=== PATIENT | male | born 1990 | race Caucasian/White ===

== ENCOUNTER 2016-12-31 16:23 | Observation (INO) | payer SELFPAY ==
[~2016-12-31] VITALS: Ht 170.2 cm; Wt 68.0 kg
[2016-12-31 16:29] VITALS: Ht 170.2 cm; Wt 68.0 kg
[2016-12-31] MEDS ORDERED: XYLOCAINE 1%/SOD BICARB 20 ML VIAL INFIL ONE (17:09)
[2016-12-31] MEDS ORDERED: CEFTRIAXONE SOD INJ 1 GM ADDVIAL IV STA (17:25)
[2016-12-31] MEDS ORDERED: MoRPHine SULFATE 10 MG/ML CARP/VIAL IV STA (17:25)
[2016-12-31] MEDS ORDERED: SODIUM CHLORIDE 0.9% 500ML 500 ML IV STA (17:25)
[2016-12-31] MEDS ORDERED: ONDANSETRON INJ 2 MG/ML 2 ML VIAL IV STA (17:25)
[2016-12-31 17:46] LABS: HEMATOCRIT 46.2 % (42-52); MEAN CELL VOLUME 88.7 fL (80-100); MEAN CORPUSCULAR HEMOGLOBIN 31.9 pg (25-34); MEAN CORPUSCULAR HGB CONC 35.9 g/dl (32-36); MEAN PLATELET VOLUME 9.1 fL (7.4-10.4); PLATELET COUNT 380 K/uL (130-400); RED BLOOD COUNT 5.21 M/uL (4.7-6.1); WHITE BLOOD COUNT 12.05 K/uL (4.8-10.8)
--- NOTE | 2016-12-31 17:51 | EMERGENCY ROOM VISIT NOTE ---
ED Visit Note First contact with patient: 17:30 Staff note: I have seen and examined this patient. I have discussed this case with my PA and generally agree with the ED note and findings.
[2016-12-31 18:03] LABS: BUN/CREATININE RATIO 19.6 (10-20); CALCIUM 9.4 mg/dl (8.5-10.1); CREATININE 1.1 mg/dl (0.60-1.40); POTASSIUM 3.7 mmol/L (3.5-5.1)
--- NOTE | 2016-12-31 18:05 | DIAGNOSTIC IMAGING REPORT ---
R WRIST 2 VIEW CLINICAL HISTORY: Right wrist laceration. COMPARISON: None FINDINGS: Alignment of the right wrist is anatomic. No fracture or radiopaque foreign body is identified. Carpal bones are intact. A lucency within the soft tissues overlying the palmar lateral aspect of the distal right radius suggests a laceration. IMPRESSION: 1. No acute fracture or radiopaque foreign body within the right wrist. 2. Lucency within the soft tissues of the palmar aspect of the right wrist which suggests a laceration. Electronically signed by: Robbie Flores M.D. 12/31/2016 6:04 PM Dictated Date/Time: 12/31/2016 6:02 PM
[2016-12-31] MEDS ORDERED: ROCURONIUM BROMIDE 10 MG/ML 5 ML VIAL IV ONE (18:17)
[2016-12-31] MEDS ORDERED: DEXAMETHASONE SOD INJ 4 MG/ML VIAL ONE (18:17)
[2016-12-31] MEDS ORDERED: LIDOCAINE HCL 2% 2 ML VIAL (20MG/ML) ONE (18:17)
[2016-12-31] MEDS ORDERED: MIDAZOLAM HCL 1 MG/ML 2ML VIAL ONE (18:17)
[2016-12-31] MEDS ORDERED: PROPOFOL IV EMULSION 10 MG/ML 20 ML VIAL IV ONE (18:17)
[2016-12-31] MEDS ORDERED: FENTANYL CITRATE INJ 50 MCG/1 ML 2 ML VIAL ONE (18:17)
[2016-12-31] MEDS ORDERED: NEOSTIGMINE METHYLSULFATE 5 MG/5 ML SYR ONE (18:17)
[2016-12-31] MEDS ORDERED: GLYCOPYRROLATE INJ 0.2 MG/ML VIAL ONE ×2 (18:17→19:04)
[2016-12-31] MEDS ORDERED: ONDANSETRON INJ 2 MG/ML 2 ML VIAL ONE (18:17)
[2016-12-31] MEDS ORDERED: SODIUM CHLORIDE 0.9% INJ 10 ML VIAL ONE (18:21)
[2016-12-31] MEDS ORDERED: HYDROmorphone INJ 2 MG/ML SYR/VIAL ONE (18:21)
[2016-12-31] MEDS ORDERED: BUPIVACAINE/EPINEPHRINE 0.5% MPF 1:200,000 30 ML VIAL ONE (18:25)
[2016-12-31] MEDS ORDERED: BUPIVACAINE 0.5 % 5 MG/1 ML MPF 30ML VIAL ONE (18:31)
[2016-12-31] MEDS: BACITRACIN 50000 UNIT VIAL ONE ×2 (19:22→19:26)
--- NOTE | 2016-12-31 19:58 | [facility] Post Operative Brief Note ---
Immediate Operative Summary Operative Date Dec 31, 2016. Pre-Operative Diagnosis Right wrist laceration Post-Operative Diagnosis Right wrist laceration with laceration radial artery and several flexor tendons Procedure(s) Performed Incision and Drainage Extremity right forearm with radial artery ligation Surgeon Dr. Elkin Webb Launderette Attendant Surgeon(s) none Estimated Blood Loss 50cc Findings as above Specimens none per surgeon Complication(s) None Disposition Recovery Room / PACU
[2016-12-31] MEDS ORDERED: ONDANSETRON INJ 2 MG/ML 2 ML VIAL IV PRN (20:00)
[2016-12-31] MEDS ORDERED: METOCLOPRAMIDE HCL INJ 5 MG/ML 2 ML VIAL IV PRN (20:00)
--- NOTE | 2016-12-31 20:00 | HISTORY & PHYSICAL EXAMINATION ---
DATE OF ADMISSION: 12/31/2016 CHIEF COMPLAINT: Laceration of right forearm. HISTORY OF PRESENT ILLNESS: Mathew is a 26-year-old male who was carrying a fish tank today when he dropped it and he has a transverse laceration across his right forearm. He came to the Emergency Room and there was concern for an injury to the ulnar artery. He was placed in a tourniquet and orthopedics was consulted to evaluate and treat. PAST MEDICAL HISTORY: Denies. MEDICATIONS: None. PAST SURGICAL HISTORY: Denies. ALLERGIES: AMOXICILLIN, PENICILLIN AND BACTRIM. FAMILY HISTORY: Noncontributory. SOCIAL HISTORY: He is currently single and lives in the [facility]. REVIEW OF SYSTEMS: He has right forearm laceration. PHYSICAL EXAMINATION: GENERAL: He is awake, alert and oriented x3. He is very frustrated and very belligerent and rude to the staff. HEENT: His pupils are equal, round and reactive to light. Extraocular movements intact. Oral mucosa is pink and moist. HEART: Regular rate per radial pulse. LUNGS: Suad symmetrically bilaterally with no audible breath sounds. ABDOMEN: Soft, nontender, nondistended. MUSCULOSKELETAL: There is a transverse laceration on the ulnar volar aspect of his right forearm. It is about 3 cm proximal to the distal flexor crease. There was a tourniquet applied to his forearm and there is no current bleeding. He refuses to participate in any neurologic or vascular exam. He keeps screaming that he will not participate and that he will not move anything. It is not that he cannot move it, it is he refuses to participate in any exam until he gets more pain meds or he has it fixed. IMPRESSION: A volar laceration with possible ulnar artery injury to the right forearm. PLAN: I want to take him to the operating room and make sure I can get the bleeding stopped. I will do an exploration of the wound. It is going to be difficult with the fact that he is refusing to give me any physical exam. I will probably keep him overnight on IV antibiotics before discharge to home.
--- NOTE | 2016-12-31 20:25 | Anesthesiology Progress Note ---
Anesthesia Post Op Note Date & Time Dec 31, 2016 at 20:25 Vital Signs Pain Intensity: 3 Vital Signs Past 12 Hours Date Time Temp Pulse Resp B/P (MAP) Pulse Ox O2 Delivery O2 Flow Rate FiO2 12/31/16 20:20 36.4 95 18 136/81 100 Room Air 12/31/16 20:10 90 18 128/89 100 Room Air 12/31/16 20:00 92 18 132/88 100 Room Air 12/31/16 19:50 36.5 88 18 141/87 100 Room Air 12/31/16 18:32 86 22 143/85 98 12/31/16 16:29 37.0 102 16 135/93 96 Room Air Notes Mental Status: alert / awake / arousable, participated in evaluation Pt Amnestic to Procedure: Yes Nausea / Vomiting: adequately controlled Pain: adequately controlled Airway Patency, RR, SpO2: stable & adequate BP & HR: stable & adequate Hydration State: stable & adequate Anesthetic Complications: no major complications apparent
[2016-12-31 20:35] VITALS: BP 132/87; PULSE 98; TEMP 36.6; O2SAT 98; O2SAT 99
--- NOTE | 2016-12-31 20:48 | EMERGENCY ROOM VISIT NOTE ---
History First contact with patient: 17:03 Chief Complaint: LACERATION/CUT (SUT/DERMABOND) Stated Complaint: R WRIST LAC. Nursing Triage Summary: Right wrist laceration. History of Present Illness The patient is a 26 year old male who presents to the Emergency Room with complaints of a laceration to his right wrist. The patient reports that he was carrying an aquarium when it dropped, shattered and cut his wrist. The patient reports significant bleeding from the wound. He rates his discomfort a 10 out of 10. A pressure dressing was applied prior to arrival. Tetanus immunization is up-to-date. The patient is [id number]. He reports pain extending into the hand and fingers. He denies any numbness or paresthesias of the hand or fingers. Review of Systems HEENT: Denies dizziness, visual problems, hearing loss, tinnitus. Denies difficulty swallowing or oral lesions. PULMONARY: Denies cough, shortness of breath, sputum production or hemoptysis. CARDIOVASCULAR: Denies chest pain, palpitations, dyspnea on exertion, orthopnea or peripheral edema. GASTROINTESTINAL: Denies diarrhea, constipation, nausea, vomiting, or abdominal pain. GENITOURINARY: Denies dysuria, frequency, urgency or nocturia. NEUROLOGIC: Denies history of epilepsy, CVA, TIA or chronic headaches. MUSCULOSKELETAL: Denies history of joint tenderness/swelling. SKIN: Denies rashes or lesions. PSYCHIATRIC: Denies history of depression or mental illness. ENDOCRINE: Denies history of diabetes or thyroid disorders. Past Medical/Surgical History Medical Problems: (1) Forearm laceration involving tendon Family History Unremarkable Social History Smoking Status: Former Smoker Alcohol Use: occasionally Marital Status: single Occupation Status: employed Current/Historical Medications Scheduled Cephalexin Monohydrate (Keflex), 500 MG PO QID Scheduled PRN Hydrocodone/Acetaminophen 5MG/325MG ([place] 5MG/325MG), 1 TABLET PO Q6 PRN for Pain Allergies Coded Allergies: Amoxicillin (Verified Allergy, Unknown, HIVES AND TONGUE SWELLING, 12/31/16 ) Penicillins (Unverified Allergy, Unknown, UNKNOWN, 12/31/16) PATIENT SAYS HE IS ALLERGIC TO "ALL CILLINS" Sulfamethoxazole w/Trimethoprim (Verified Allergy, Unknown, HIVES AND TONGUE SWELLS, 12/31/16) Physical Exam Vital Signs Date Time Temp Pulse Resp B/P (MAP) Pulse Ox O2 Delivery O2 Flow Rate FiO2 12/31/16 20:00 92 18 132/88 100 Room Air 12/31/16 19:50 36.5 88 18 141/87 100 Room Air 12/31/16 18:32 86 22 143/85 98 12/31/16 16:29 37.0 102 16 135/93 96 Room Air Physical Exam CONSTITUTIONAL: Healthy and well nourished. Alert and oriented X 3. PSYCHIATRIC: The patient is belligerent, confrontational with staff and crying. HEENT: Normocephalic, atraumatic. Pupils equal, round and reactive. NECK: Full active range of motion without discomfort. RESPIRATORY: Clear to auscultation bilaterally with no wheezing, crackles, rhonchi or stridor. CARDIOVASCULAR: Regular rate and rhythm with no murmurs, rubs or gallops. MUSCULOSKELETAL: On my initial presentation, a pressure dressing had been applied to the wrist. Upon removal of the dressing, there was no active bleeding. The patient then refused any additional examination, reporting that any movement of his wrist cause significant discomfort. He refuses to flex and extend the fingers. No obvious glass foreign bodies or wound contamination is appreciated. Capillary refill of all fingers is less than 2 seconds. INTEGUMENTARY: No rash or other significant dermatologic conditions noted. NEUROLOGIC: Right hand and fingers are grossly sensory intact, although detailed neurologic exam was refused by the patient. Medical Decision & Procedures ER Provider Diagnostic Interpretation: My interpretation of right wrist x-rays does not show any obvious fractures. Radiologist report is as follows: R WRIST 2 VIEW CLINICAL HISTORY: Right wrist laceration. COMPARISON: None FINDINGS: Alignment of the right wrist is anatomic. No fracture or radiopaque foreign body is identified. Carpal bones are intact. A lucency within the soft tissues overlying the palmar lateral aspect of the distal right radius suggests a laceration. IMPRESSION: 1. No acute fracture or radiopaque foreign body within the right wrist. 2. Lucency within the soft tissues of the palmar aspect of the right wrist which suggests a laceration. Laboratory Results 12/31/16 17:30 12/31/16 17:30 Test 12/31/16 17:30 Red Blood Count 5.21 M/uL (4.7-6.1) Mean Corpuscular Volume 88.7 fL (80-100) Mean Corpuscular Hemoglobin 31.9 pg (25-34) Mean Corpuscular Hemoglobin Concent 35.9 g/dl (32-36) RDW Standard Deviation 40.3 fL (36.4-46.3) RDW Coefficient of Variation 12.5 % (11.5-14.5) Mean Platelet Volume 9.1 fL (7.4-10.4) Anion Gap 13.0 mmol/L (3-11) Est Creatinine Clear Calc Drug Dose 93.5 ml/min Estimated GFR () 105.3 Estimated GFR (Non- 90.9 BUN/Creatinine Ratio 19.6 (10-20) Calcium Level 9.4 mg/dl (8.5-10.1) The above labs were reviewed. Hemoglobin is stable at 16.6. Medications Administered Medications (Trade) Dose Ordered Sig/Felicity Route Start Time Stop Time Status Last Admin Dose Admin Lidocaine HCl (Buffered Lidocaine 1% Inj) 20 ml STK-MED ONCE INFIL 12/31/16 17:09 12/31/16 17:10 DC 12/31/16 17:49 20 ML Ceftriaxone Sodium (Rocephin Inj) 1 gm NOW STAT IV 12/31/16 17:25 12/31/16 17:30 DC 12/31/16 17:49 1 GM Morphine Sulfate (MoRPHine SULFATE INJ) 8 mg NOW STAT IV 12/31/16 17:25 12/31/16 17:30 DC 12/31/16 17:48 8 MG Ondansetron HCl (Zofran Inj) 4 mg NOW STAT IV 12/31/16 17:25 12/31/16 17:30 DC 12/31/16 17:48 4 MG Sodium Chloride 500 ml @ 999 mls/hr Q31M STAT IV 12/31/16 17:25 12/31/16 17:55 DC 12/31/16 17:49 999 MLS/HR Bacitracin (Bacitracin Inj) 100,000 units STK-MED ONCE .ROUTE 12/31/16 18:25 12/31/16 18:26 DC 12/31/16 19:26 50,000 UNITS Bupivacaine HCl (Marcaine 0.5% MPF Inj) 60 ml STK-MED ONCE .ROUTE 12/31/16 18:31 12/31/16 18:32 DC 12/31/16 19:23 30 ML Oxycodone HCl (Roxicodone Immediate Rel Tab) 1-2 TABS FOR PAIN 1 TABLET ... Q4H PRN PO 12/31/16 20:00 01/01/17 10:57 DC 01/01/17 09:43 10 MG Morphine Sulfate (MoRPHine SULFATE INJ) 2 mg Q2HWA PRN IV 12/31/16 20:00 01/01/17 10:57 DC 01/01/17 08:00 2 MG Procedure Wound evaluation was performed under local anesthesia after receiving verbal consent from the patient. Using buffered 1% lidocaine without epinephrine, good local anesthesia was administered. The peripheral tissue was cleansed with iodine. There was no active bleeding during local anesthesia administration. As I was attempting to perform additional wound exploration in sterile fashion, the patient had immediate hemorrhage of the radial artery. I was unable to control the bleeding with direct pressure, therefore a blood pressure cuff tourniquet at 300 mmHg was applied and saline gauze applied. The patient appears to have a transected radial artery, and extensive flexor tendon lacerations. I was unable to further identify which tendons were lacerated because of the patient's intolerance to exam. ED Course Patient history and physical exam were performed. Nurse's notes were reviewed. Vital signs were reviewed and were normal. As indicated in previous sections , pressure dressings were removed from the wound on my initial exam. The patient had no active bleeding. I did suggest wound evaluation and repair under local anesthesia. The patient had spontaneous and significant hemorrhage from the radial artery. A blood pressure cuff tourniquet, inflated to 300 mmHg , had to be applied. I immediately is cussed the case with Dr. Melchor, ED attending physician, who performed an exam and agrees with a stat orthopedic consultation. The patient was further evaluated by Dr. Webb who will be taking the patient to the OR for further wound exploration and repair. Total tourniquet time until I spoke with Dr. Webb upon his arrival was 56 minutes. Immediately after it was determined that the patient would likely require surgical intervention, and before consultation with Dr. Webb, IV access was established. Labs were reviewed with a normal hemoglobin. The patient was administered IV Rocephin, morphine and Zofran. Please see Dr. Webb's dictation for further surgical treatment and final disposition. Medical Decision Impression Primary Impression: Forearm laceration involving tendon Departure Information Prescriptions Hydrocodone/Acetaminophen 5MG/325MG ([place] 5MG/325MG) Tab 1 TABLET PO Q6 Y for Pain, #20 TAB Prov: Elkin Webb, DO 01/01/17 Cephalexin Monohydrate (KEFLEX) 500 Mg Cap 500 MG PO QID for 10 Days, #40 CAP Prov: Elkin Webb, DO 01/01/17 Referrals No Doctor, Assigned (PCP) Patient Instructions [facility] Problem Qualifiers Primary Impression: Forearm laceration involving tendon Encounter type: initial encounter Laterality: right Qualified Codes: S51.811A - Laceration without foreign body of right forearm, initial encounter; S56.921A - Laceration of unspecified muscles, fascia and tendons at forearm level, right arm, initial encounter
[2016-12-31 21:08] VITALS: BP 121/77; PULSE 89; TEMP 36.6; O2SAT 92
[2016-12-31 21:15] VITALS: O2SAT 92
[2016-12-31 21:39] VITALS: BP 132/79; PULSE 92; TEMP 36.5; O2SAT 97
[2016-12-31] MEDS: OXYCODONE HCL IR 5 MG TAB (IMMEDIATE RELEASE) PO PRN (21:44)
[2016-12-31] MEDS: KETOROLAC TROMETHAMINE 30 MG/ML VIAL IV. SCH (21:45)
[2016-12-31] MEDS: ACETAMINOPHEN IV 1,000 MG in EMPTY BAG 0 ML IV SCH (21:45)
[2016-12-31] MEDS: POTASSIUM CHLORIDE INJ 10 MEQ in SODIUM CHLORIDE 0.9% 1000ML 1,000 ML IV SCH (21:45)
[2016-12-31 22:40] VITALS: BP 133/89; PULSE 98; TEMP 36.8; O2SAT 97
[2016-12-31] MEDS ORDERED: IV FLUIDS COMPLETED PRN (23:15)
[2017-01-01 00:08] VITALS: BP 135/84; PULSE 95; TEMP 36.4; O2SAT 98
[2017-01-01] MEDS: MoRPHine SULFATE 2 MG/ML CARP IV PRN ×2 (01:04→08:00)
[2017-01-01] MEDS: CEFAZOLIN IV 2,000 MG in DEXTROSE 5% 50ML 50 ML IV SCH ×2 (01:39→09:32)
[2017-01-01] MEDS: KETOROLAC TROMETHAMINE 30 MG/ML VIAL IV. SCH ×2 (03:48→09:33)
[2017-01-01 03:50] VITALS: BP 113/73; PULSE 87; TEMP 36.5; O2SAT 95
[2017-01-01] MEDS: ACETAMINOPHEN IV 1,000 MG in EMPTY BAG 0 ML IV SCH (05:33)
[2017-01-01] MEDS: OXYCODONE HCL IR 5 MG TAB (IMMEDIATE RELEASE) PO PRN ×2 (05:36→09:43)
[2017-01-01 06:54] VITALS: BP 111/68; PULSE 93; TEMP 36.7; O2SAT 98
--- NOTE | 2017-01-01 07:05 | OPERATIVE REPORT ---
DATE OF OPERATION: 12/31/2016 PREOPERATIVE DIAGNOSIS: Laceration of the right wrist with tendon and arterial involvement. POSTOPERATIVE DIAGNOSIS: Laceration of the right wrist with tendon and arterial involvement. PROCEDURE: Irrigation and debridement of the right wrist with ligation of the radial artery and closure of the wound. SURGEON: Dr. Elkin Webb. TECHNICAL SERVICES MANAGER: None. ANESTHESIA: General. COMPLICATIONS: None. CONDITION: Stable to PACU. INDICATIONS: Mathew is a 26-year-old male who dropped a fish tank earlier today sustaining a laceration to his right wrist. There was a lot of bleeding, and he placed a compressive dressing and came to the Emergency Room. In the Emergency Room, found a lacerated radial artery and tendon involvement. Orthopedics was consulted to evaluate and treat. When I went down to the Emergency Room, there was active bleeding from the radial artery, and the patient was having a lot of difficulty tolerating a tight tourniquet on his arm. The decision was made to reddy him directly to the operating room. He had a general anesthesia. The tourniquet was deflated and compression was placed just over the laceration. Once I was happy there was at least some perfusion of the hand, a standard tourniquet was placed. The right forearm and hand were then prepped and draped in sterile fashion. Time-out was done and the patient's operative extremity was identified. There was a complete laceration of the radial artery. I was able to grab the radial artery with some forceps and placed 2 silk ties both proximally and distally. Attention was then turned to the tendinous structures. It appeared that the flexor carpi radialis had been lacerated; however, there were some deeper tendons that were lacerated as well. I did a brief exploration of the wound, I was unable to identify the median nerve. I did not feel qualified to do a two-tendon repair and possibly a more extensive repair of the forearm. So at this point, I felt it was best that I had stabilized the incision and I will send him to a hand specialist. The wound was then irrigated with 3 liters of normal saline solution with bacitracin. The tourniquet was deflated and hemostasis was easily controlled. The laceration was then closed with 4-0 nylon suture in an interrupted fashion. A single suture was placed over small laceration on the dorsal aspect of the IP joint of the thumb. The wound was then dressed and needle was placed in a splint. He was then extubated, transferred to the [facility] and taken to the postanesthesia care unit in stable condition. He tolerated the procedure well. I attest to the content of the Intraoperative Record and any orders documented therein. Any exception s are noted below.
[2017-01-01] MEDS ORDERED: CEPH500C2 PO (07:41)
[2017-01-01] MEDS ORDERED: HYDR-5688 PO (07:41)
--- NOTE | 2017-01-01 07:43 | Discharge Instructions ---
Discharge Instructions Date of Service Jan 01, 2017. Admission Reason for Admission: Forearm Laceration Involving Tendon Discharge Discharge Diagnosis / Problem: Right wrist laceration Discharge Goals Goal(s): Decrease discomfort Activity Recommendations Activity Limitations: as noted below Lifting Limitations: until after follow-up appointment Exercise/Sports Limitations: until after follow-up appointment Shower/Bathe: keep incision dry . Instructions / Follow-Up Instructions / Follow-Up leave splint in place elevate right wrist follow up with Dr Wilkins with [facility] on Current Hospital Diet Patient's current hospital diet: Regular Diet Discharge Diet Recommended Diet: Regular Diet Procedures Procedures Performed: Incision and Drainage Extremity right forearm with radial artery ligation Pending Studies Studies pending at discharge: no Medical Emergencies . Who to Call and When: Medical Emergencies: If at any time you feel your situation is an emergency, please call 911 immediately. . Non-Emergent Contact Non-Emergency issues call your: Surgeon Call Non-Emergent contact if: wound has increased drainage, wound has increased redness . "Provider Documentation" section prepared by Elkin Webb. . VTE Core Measure Inpt VTE Proph given/why not?: Treatment not indicated
[2017-01-01] MEDS: POTASSIUM CHLORIDE INJ 10 MEQ in SODIUM CHLORIDE 0.9% 1000ML 1,000 ML IV SCH (07:56)
--- NOTE | 2017-01-01 08:05 | PROGRESS NOTE ---
DATE: 01/01/2017 CHIEF COMPLAINT: Status post right wrist laceration postop day #1. PROGRESS: Mathew was seen and examined at bedside today. He said his hand feels swollen. He is able to keep his hand elevated. His pain is relatively well controlled. He has no other complaints. PHYSICAL EXAMINATION: RIGHT HAND: The dressing is clean and dry. The splint is intact. He has feeling to his right ring finger, but he has no feeling in his middle, index fingers or the tip of his thumb. He seems to have good perfusion and good capillary refill to the tips of his fingers. IMPRESSION: Status post closure laceration right wrist postop day #1. PLAN: He has multiple tendon involvement with the wrist and possible nerve involvement as well. He is going to follow up with Dr. Wilkins with [facility] on 01/03/2017. He can be discharged today when a second dose of Ancef is done and discharge to home on oral Keflex and pain medications.
--- NOTE | 2017-01-01 08:09 | DISCHARGE SUMMARY ---
DISCHARGE DIAGNOSIS: Laceration of the right wrist. PROCEDURE: Closure of the right wrist with ligation of the radial artery on 12/31/[address] Elkin Webb. DISCHARGE INSTRUCTIONS: 1. Keflex 500 mg 4 times a day for 10 days. 2. [place] 5/325 every 6 hours as needed for pain. 3. Keep right arm elevated. 4. Follow up with Dr. Wilkins with [facility] on . 5. Call the office of Dr. Webb with any questions or concerns. HOSPITAL COURSE: Mathew is a 26-year-old male who was carrying a fish tank when it broke and he slit his right wrist. There was significant bleeding from the radial artery. He went to the Emergency Room and they were unable to ligate it. Orthopedics was consulted. I took him directly to the operating room where I did an irrigation and debridement of the wound and ligation of the radial artery. There was multiple tendon involvement and possible median nerve involvement. I did not fix the tendons at that time; I decided to close the wound and he could have tendons repaired by hand surgeon as an outpatient procedure. I placed him on Ancef postoperatively. On postop day #1 he was doing fairly well. He had good perfusion in his hand, but he did have some functional deficits. His pain was relatively well controlled. Once a second dose of Ancef was done he subsequently discharged to home with the above instructions.
[2017-01-01] MEDS ORDERED: PANTOprazole SOD 40 MG TAB PO SCH (09:00)
[2017-01-01] MEDS ORDERED: MULTIVITAMIN TAB PO SCH (09:00)
[2017-01-01 10:05] VITALS: BP 111/68; PULSE 93; TEMP 36.7; O2SAT 98
== END 2017-01-01 10:56 | disposition home or self-care (01) ==
LOC: EDBD 16:23 → C.EDB 16:27 → C.MSW 20:02 → ENRESERV 20:19
PROVIDERS: ADMIT Orthopaedic Surgery; ATTEND Orthopaedic Surgery
DX: S66.921A Laceration of unspecified muscle, fascia and tendon at wrist and hand level, right hand, initial encounter (principal); S55.111A Laceration of radial artery at forearm level, right arm, initial encounter; W25.XXXA Contact with sharp glass, initial encounter; Z87.891 Personal history of nicotine dependence